=== PATIENT | female | born 1990 | race Caucasian/White ===

== ENCOUNTER 2017-03-24 20:33 | Emergency (ER) | payer SELFPAY, OTHER | END 2017-03-25 | disposition left against medical advice (07) | LOC: FTE 20:33 | DX: Z53.21 Procedure and treatment not carried out due to patient leaving prior to being seen by health care provider (principal) ==

== ENCOUNTER 2018-01-26 06:29 | Emergency (ER) | payer OTHER ==
[2018-01-26] MEDS: DEXAMETHASONE (1 MG/ML PO SYG) PO (07:15)
== END 2018-01-26 07:33 | disposition home or self-care (01) ==
LOC: FTE 06:29
DX: J06.9 Acute upper respiratory infection, unspecified (principal); J45.909 Unspecified asthma, uncomplicated
CPT/HCPCS: 99283; Z7502